=== PATIENT | male | born 1955 | race Caucasian/White ===

== ENCOUNTER → 2017-05-13 | Outpatient (CLI) | payer BC ==
[~2017-05-13] MED LIST: ALBU0.63 NEB; ALBUAER3 INH; FLUTI110I INH; IBUP1TAB5 PO; NORC5TAB PO; PRED-503 PO; UMEC1AER INH; VENTAER INH
== END ==
LOC: HRSP 09:08
PROVIDERS: ATTEND Internal Medicine
DX: J44.9 Chronic obstructive pulmonary disease, unspecified (principal)
CPT/HCPCS: 94060; 94620; 94726; 94729; 95012